=== PATIENT | male | born 1950 | race Caucasian/White ===

== ENCOUNTER 2019-09-29 | Day surgery (SDC) | payer MEDICARE, OTHER ==
[~2019-09-29] MED LIST: BUPROPION150 M4 PO; CALTRAT1 PO; CRESTOR20 MG PO; FLECAINIDE50 MG PO; LAMICTAL150 M1 PO; OMEGA 31000 MG PO; PANTOPRAZOLE SO40 M1 PO; SG ASA LOW81 M1 PO; TAMSULOSIN0.4 MG PO; XARELTO10 MG PO
[2019-09-29 11:00] LABS: BARBITURATES NEGATIVE (NEGATIVE); COCAINE NEGATIVE (NEGATIVE); METHADONE NEGATIVE (NEGATIVE); OXCYCODONE NEGATIVE (NEGATIVE); TETRAHYDROCANNABIONOL NEGATIVE (NEGATIVE); TRICYLIC ANTIDEPRESSANTS NEGATIVE (NEGATIVE)
== END 2019-09-29 13:55 | disposition home or self-care (01) ==
PROVIDERS: Nurse Anesthetist, Certified Registered
PROC: 0DBP8ZX Excision of Rectum, Via Natural or Artificial Opening Endoscopic, Diagnostic (ICD-10-PCS; principal; 2019-09-29)
PROC: 0DBL8ZX Excision of Transverse Colon, Via Natural or Artificial Opening Endoscopic, Diagnostic (ICD-10-PCS; 2019-09-29)
PROC: 0DBN8ZX Excision of Sigmoid Colon, Via Natural or Artificial Opening Endoscopic, Diagnostic (ICD-10-PCS; 2019-09-29)
PROC: 0DB68ZX Excision of Stomach, Via Natural or Artificial Opening Endoscopic, Diagnostic (ICD-10-PCS; 2019-09-29)
PROC: 0DB78ZX Excision of Stomach, Pylorus, Via Natural or Artificial Opening Endoscopic, Diagnostic (ICD-10-PCS; 2019-09-29)
DX: D12.5 Benign neoplasm of sigmoid colon (principal); D12.3 Benign neoplasm of transverse colon; K62.1 Rectal polyp; K57.30 Diverticulosis of large intestine without perforation or abscess without bleeding; K64.8 Other hemorrhoids; K64.4 Residual hemorrhoidal skin tags; K74.60 Unspecified cirrhosis of liver; I85.10 Secondary esophageal varices without bleeding; Q39.8 Other congenital malformations of esophagus; K29.50 Unspecified chronic gastritis without bleeding; K44.9 Diaphragmatic hernia without obstruction or gangrene; K76.6 Portal hypertension; K31.89 Other diseases of stomach and duodenum; K22.8 Other specified diseases of esophagus; F17.200 Nicotine dependence, unspecified, uncomplicated; Z86.010 Personal history of colon polyps